=== PATIENT | female | born 2000 | race Caucasian/White ===

== ENCOUNTER 2019-05-12 07:00 | Day surgery (SDC) | payer OTHER ==
[2019-05-11 17:10] LABS: Absolute Lymphocytes (CBC) 2.2 K/uL (0.7-4.9); Basophils % 0.2 % (0-1.3); Hematocrit 35.2 % (36.0-45.0); Lymphocytes % 23.4 % (15.3-44.8); MPV 8.1 fL (7.6-11.3); RBC Red Blood Cell Count 3.85 M/uL (3.86-4.86)
[2019-05-11 17:27] LABS: BUN Blood Urea Nitrogen 9 mg/dL (7-18); Bicarbonate 28 mmol/L (21-32); Glucose Level 77 mg/dL (74-106); Potassium 3.6 mmol/L (3.5-5.1); Sodium Level 140 mmol/L (136-145)
[2019-05-11 17:31] LABS: ALT/SGPT 24 U/L (12-78); AST/SGOT 13 U/L (15-37); Albumin 3.9 g/dL (3.4-5.0); Alkaline Phosphatase 66 U/L (45-117); Amylase Level 46 U/L (25-115); Bilirubin Direct < 0.1 mg/dL (0-0.2); Bilirubin Total 0.3 mg/dL (0.2-1.0); Lipase 115 U/L (73-393); Protein, Total 7.8 g/dL (6.4-8.2)
[2019-05-12] MEDS ORDERED: Ringers Lactate 1,000 ML IV ONE (07:43)
[2019-05-12] MEDS ORDERED: propofoL 200 MG/20 ML VIAL IV ONE (08:13)
[2019-05-12] MEDS ORDERED: FENTANYL CITR 100 MCG/2 ML ONE ×2 (08:13→09:01)
[2019-05-12] MEDS ORDERED: LIDOCAINE 1% MPF 5 ML VIAL ONE (08:14)
[2019-05-12] MEDS ORDERED: ROCURONIUM 50 MG/5 ML VIAL IV ONE (08:14)
[2019-05-12] MEDS ORDERED: MIDAZOLAM HCL 2 MG/2 ML INJ ONE (08:14)
[2019-05-12] MEDS: CEFOXITIN/SWI 1gm 1 GM/10 ML SYR ONE ×2 (08:35→08:50)
[2019-05-12] MEDS ORDERED: GLYCOPYRROLATE 0.2 MG/ML SYR ONE (09:12)
[2019-05-12] MEDS ORDERED: NEOSTIGMINE 1 MG/ML -5 ML ONE (09:13)
[2019-05-12] MEDS ORDERED: KETOROLAC 30 MG/ML INJ ONE (09:13)
[2019-05-12] MEDS ORDERED: ONDANSETRON 4 MG/2 ML VIAL ONE (09:13)
--- NOTE | 2019-05-12 09:29 | P.BOP ---
Preoperative diagnosis: RUQ abd pain, biliary dyskinesia, epigastric pain, cholecystitis Postoperative diagnosis: same Primary procedure: Laparoscopic cholecystectomy Senior Financial Analyst: MARLENE REILLY (VOICE WRITING REPORTER) Estimated blood loss: <10cc Specimen: gb Findings: as above Anesthesia: General Complications: None Transferred to: Recovery Room Condition: Good
[2019-05-12] MEDS: HYDROMORPHONE HCL 1 MG/ML INJ ONE ×2 (10:14→10:50)
[2019-05-12] MEDS ORDERED: PROMETHAZINE INJ 25 MG/ML AMP ONE (11:07)
[2019-05-12 12:40] VITALS: TEMP 98; O2SAT 98
[2019-05-12 12:44] VITALS: BP 110/72
--- NOTE | 2019-05-13 03:29 | OP ---
Date of Procedure: 05/12/2019 Surgeon: Cj Rubio MD [employer] Alarm Superintendent: DION Monroe. Preoperative Diagnoses: 1.Right lower quadrant abdominal pain. 2.Biliary dyskinesia. 3.Epigastric pain. 4.Cholecystitis. Postoperative Diagnoses: 1.Right lower quadrant abdominal pain. 2.Biliary dyskinesia. 3.Epigastric pain. 4.Cholecystitis. Procedure: Laparoscopic cholecystectomy. Estimated Blood Loss: Less than 10 mL. Specimen: Gallbladder. Anesthesia: General plus local. Indications: This is the case of a female who comes to us with above diagnosis. Fully explained the benefits, alternatives, and risks of laparoscopic possible open cholecystectomy, which include, but are not limited to infection, bleeding, damage to adjacent structures, anesthesia complication, right upper quadrant pain, [place], and even . She also understands this may not relieve the symptoms. S he might need more than one surgical intervention. She is already going to her vehicle washer. We encouraged her to continue workup, also looking for peptic ulcer disease, although they have not b een able to find that yet. She was advised also the importance of diet. She signed the consent. Description Of Procedure: Patient was brought to the operating room, placed in supine position. Ane sthesia was done without complication. Abdominal area was prepped and draped in a sterile fashion. Marcaine 0.5% was injected for local anesthetic, followed by sharp incision of the skin in the infrau mbilical region. Incision was carried down to fascia, which was opened under direct vision. Periton eum was encountered, opened under direct vision. Vicryl #1 placed inside of the fascia. Mayda troc ar was carefully introduced. No bleeding was obtained. I put 3 more trocars, 5 mm each one of them, in the right upper quadrant using the same technique, which consists of local anesthetic, sharp inci won of the skin, introduction of the trocars under direct vision. This allowed me to put a grasper in the fundus of the gallbladder, another grasper in the infundibulum, retracted the gallbladder in t he inferolateral fashion exposing the triangle of Calot, obtaining critical view of state. Cystic du ct and cystic artery were clearly isolated, freed circumferentially and a connection between those an d the gallbladder was clearly identified. I proceeded to ligate those by using at least 3 clips prox imal, 1 clip distal, ligation in the middle. Same was done with the cystic artery. No bile leak. N o bleeding. The gallbladder was removed from the liver using Bovie cauterizer and removed from abdom inal cavity using EndoCatch through the umbilical incision. The area was inspected once again. The gallbladder fossa looks intact. Clips were intact. No bile leak. No bleeding. Liver anteriorly an d extracapsular shows no masses seen. Stomach soft and compressible and transverse colon in that are a does not show any extraluminal masses anteriorly. At that moment, I proceeded to remove the trocar s under direct vision, deflated the pneumoperitoneum. Closed the fascia with #1 Vicryl. Irrigated s ubcutaneous incision, closed that with 3-0 chromic and the skin with 3-0 chromic and Steri-Strips on top. Sponge count and instrument counts were correct. Patient tolerated the procedure well. Brandon glasgow was sent to the recovery in stable condition. RENA/KYLIE Voice ID: [id number] Report ID: [id number]
--- NOTE | 2019-05-13 03:36 | DS ---
Date of Discharge: 05/12/2019 Diagnosis: Right upper quadrant abdominal pain. Biliary dyskinesia. Epigastric pain. Cholecystiti s. Procedure: Laparoscopic cholecystectomy. Disposition: Home. Activity: As tolerated. No heavy lifting. Followup: Follow up in my office in 1 week. Call for appointment [phone]. Keep area dry for 48 ho urs, then may shower. Keep Steri-Strip intact. Medications: See orders. RENA/KYLIE Voice ID: [id number] Report ID: [id number]
== END 2019-05-12 12:30 | disposition home or self-care (01) ==
LOC: OR 07:00
PROVIDERS: ATTEND Surgery
PROC: 0FT44ZZ Resection of Gallbladder, Percutaneous Endoscopic Approach (ICD-10-PCS; principal; 2019-05-12 08:45)
DX: K81.1 Chronic cholecystitis (principal); K82.8 Other specified diseases of gallbladder; Z91.040 Latex allergy status
CPT/HCPCS: 85025; 80048; 36415; 82150; 81025; 80076; 88304; 83690; 47562; J2704; J2550; J2250; J3010 ×2; J1170; J2710; J7120; J2405